=== PATIENT | male | born 1970 | race Caucasian/White ===

== ENCOUNTER 2016-10-16 10:00 | Emergency (ER) | payer MEDICAID ==
[~2016-10-16] VITALS: Ht 172.7 cm; Wt 83.5 kg
[~2016-10-16 10:00] MED LIST: NAPR-260 PO; NO MEDS; POLY10DR19 LEFT EYE
[2016-10-16 10:12] VITALS: Ht 172.7 cm; Wt 83.5 kg
--- NOTE | 2016-10-16 11:11 | ERD ---
ER Documentation Chief Complaint Date/Time DATE: 10/16/16 TIME: 11:09 Chief Complaint Opthomologist referred for blood work. HPI 45-year-old male otherwise healthy comes in with a diagnosis of uveitis of the left eye from his warehouse packaging supervisor and comes to the emergency room for lab work. Patient states that he developed eye redness a week ago, he was seen in the emergency department, patient was seen by myself and went home with antibiotic drops. He states that his symptoms improved slightly and was not able to follow -up with an warehouse packaging supervisor until a week later which was yesterday. His warehouse packaging supervisor is Dr. Fred Castellon, he was told to get blood work to rule out any systemic reasons for uveitis. He has been put on prednisolone eyedrops and has reported significant improvement of his pain and redness. He denies fevers , chills. He denies headaches. ROS All systems reviewed and are negative except as per history of present illness. Medications Home Meds Active Scripts Naproxen* (Naprosyn*) 500 Mg Tablet, 500 MG PO BID Y for PAIN AND/OR INFLAMMATION, #30 TAB Prov:REAL YOUNG PA-C 10/09/16 Polymyxin B Sulfate-TMP* (Polymyxin B-TMP Eye Drops*) 10 Ml Drops, 1 DROP LEFT EYE QID for 7 Days, EA Prov:ERAL YOUNG PA-C 10/09/16 Reported Medications [No Meds] No Conflict Check 08/25/12 Allergies Allergies: Coded Allergies: No Known Allergy (Unverified , 10/16/16) PMhx/Soc Medical and Surgical Hx: pt denies Surgical Hx History of Surgery: No Anesthesia Reaction: No Hx Neurological Disorder: No Hx Respiratory Disorders: No Hx Cardiac Disorders: No Hx Psychiatric Problems: No Hx Miscellaneous Medical Probl: Yes (eye problems) Hx Alcohol Use: No Hx Substance Use: No Hx Tobacco Use: No Physical Exam Vitals Vital Signs Date Time Temp Pulse Resp B/P Pulse Ox O2 Delivery O2 Flow Rate FiO2 10/16/16 10:12 98.3 103 18 165/105 100 Physical Exam General: Well-developed, well-nourished. The patient appears in no acute distress. HEENT: Head is normocephalic, atraumatic. No scleral icterus. Left eye has mild erythema, mild photophobia. No drainage, no periorbital swelling. Neck: Supple. Nontender. Lungs: Clear to auscultation. Normal air movement. Heart: Regular rate and rhythm. S1 and S2 are normal. No murmurs, gallops, or rubs. Abdomen: Nondistended. Extremities: No clubbing or cyanosis. Moving extremities x 4. No weakness. Neurologic: Alert and oriented 3. No focal deficits. Normal speech and gait. Skin: Normal turgor. No rash or lesions. Procedures/MDM MDM: 45-year-old male comes in for lab work, diagnosis was uveitis of the left side. Clinically he does not have evidence of sections process, periorbital cellulitis or orbital cellulitis, foreign bodies. He was asked to follow-up with his warehouse packaging supervisor with results next week. Departure Diagnosis: Primary Impression: Uveitis Additional Impression: Encounter for laboratory test Condition: Good Patient Instructions: Uveitis Additional Instructions: Follow-up with your warehouse packaging supervisor next week. Return sooner for any worsening or new symptoms. REAL YOUNG PA-C Oct 16, 2016 11:11
[2016-10-16 11:33] LABS: BASOPHIL # 0.1 10^3/ul (0.0-0.1); BASOPHILS % 1.4 % (0.0-2.0); EOSINOPHILS % 0.3 % (0.0-7.0); HEMATOCRIT 44.3 % (42.0-52.0); HEMOGLOBIN 14.7 g/dl (14.0-18.0); LYMPHOCYTES # 1.1 10^3/ul (0.8-2.9); LYMPHOCYTES % 21.2 % (15.0-51.0); MEAN CORPUSCULAR HEMOGLOBIN 27.5 pg (29.0-33.0); MEAN CORPUSCULAR HGB CONC 33.2 g/dl (32.0-37.0); MEAN CORPUSCULAR VOLUME 82.8 fl (82.0-101.0); MONOCYTE # 0.3 10^3/ul (0.3-0.9); MONOCYTES % 5.9 % (0.0-11.0); NEUTROPHIL # 3.7 10^3/ul (1.6-7.5); NEUTROPHILS % 71.2 % (39.0-77.0); PLATELET COUNT 304 10^3/UL (140-440); RED BLOOD COUNT 5.35 10^6/ul (4.70-6.10); RED CELL DISTRIBUTION WIDTH 12.9 % (11.5-14.5); UNCORRECTED WBC 5.1 10^3/ul (4.8-10.8); WHITE BLOOD COUNT 5.1 10^3/ul (4.8-10.8)
[2016-10-16 11:34] LABS: CONDITION 1
[2016-10-17 15:11] LABS: ANA SCREEN NEGATIVE (NEGATIVE)
[2016-10-17 16:56] LABS: HLA B-27 POSITIVE (NEGATIVE)
[2016-10-18 21:06] LABS: FLUORESCENT TREPONEMAL AB NON-REACTIVE (NON-REACTIVE)
== END 2016-10-16 11:36 | disposition home or self-care (01) ==
LOC: FTE 10:00
DX: H20.9 Unspecified iridocyclitis (principal)
CPT/HCPCS: 82164; 85025; 85549; 86038; 86480; 86592; 86703; 86812; 87285; Z7502; 99283

== ENCOUNTER 2016-10-19 01:33 | Emergency (ER) | payer MEDICAID ==
[~2016-10-19] VITALS: Ht 177.8 cm; Wt 82.0 kg
[2016-10-19 01:38] VITALS: Ht 177.8 cm; Wt 82.0 kg
[2016-10-19] MEDS ORDERED: HYDROCODONE/APAP (5/325) TAB PO ONE (04:00)
[2016-10-19 04:23] VITALS: BP 155/88; PULSE 70; RESP 20; TEMP 98
--- NOTE | 2016-10-19 04:27 | ERD ---
ER Documentation Chief Complaint Date/Time DATE: 10/19/16 TIME: 04:21 Chief Complaint chronic left eye pain,hx-uveitis HPI This is a 45-year-old male presenting to the emergency room with left eye pain and redness. Patient was seen here a week and a half ago and was given antibiotic eyedrops and was told to follow-up with an cosmetic assembler, patient followed up with the cosmetic assembler last Friday and was diagnosed with uveitis. Patient was given prescription for prednisone drops. Patient was also sent here last Friday to get blood work however he did not get his results. Patient states that he started improving with the prednisone ophthalmologic eyedrops, however it came back today and worsened. Patient states that he has decreased vision loss ROS All systems reviewed and are negative except as per history of present illness. Medications Home Meds Active Scripts Naproxen* (Naprosyn*) 500 Mg Tablet, 500 MG PO BID Y for PAIN AND/OR INFLAMMATION, #30 TAB Prov:REAL YOUNG PA-C 10/09/16 Polymyxin B Sulfate-TMP* (Polymyxin B-TMP Eye Drops*) 10 Ml Drops, 1 DROP LEFT EYE QID for 7 Days, EA Prov:REAL YOUNG PA-C 10/09/16 Reported Medications [No Meds] No Conflict Check 08/25/12 Allergies Allergies: Coded Allergies: No Known Allergy (Unverified , 10/16/16) PMhx/Soc Medical and Surgical Hx: pt denies Surgical Hx History of Surgery: No Anesthesia Reaction: No Hx Neurological Disorder: No Hx Respiratory Disorders: No Hx Cardiac Disorders: No Hx Psychiatric Problems: No Hx Miscellaneous Medical Probl: Yes (uveitis) Hx Alcohol Use: No Hx Substance Use: No Hx Tobacco Use: No Smoking Status: Never smoker Physical Exam Vitals Vital Signs Date Time Temp Pulse Resp B/P Pulse Ox O2 Delivery O2 Flow Rate FiO2 10/19/16 01:38 98.2 66 20 174/90 97 Physical Exam General: WD/WN, in no apparent distress, non-toxic appearing HENT: NC/AT EYES: Left eye is injected, erythema Patient had severe photophobia was difficult to examine NECK: Supple; no LAD PULM: Normal labored breathing CV: RRR Good capillary refill GI: Non-distended, no guarding BACK: No masses EXT: No clubbing, cyanosis, or edema NEURO: Moves on all fours SKIN: intact PSYCH: Normal mood Results 24 hrs Current Medications Medications (Trade) Dose Ordered Sig/Jaun Route PRN Reason Start Time Stop Time Status Last Admin Dose Admin Acetaminophen/ Hydrocodone Bitart (Shafer (5/325)) 2 tab ONCE ONCE PO 10/19/16 04:00 10/19/16 04:01 DC 10/19/16 03:57 Procedures/MDM This is a 45-year-old male presenting to the emergency room with left eye pain due to uveitis that was diagnosed with an cosmetic assembler last Friday. Patient was given prednisone eyedrops and had improvement however it has worsened today. Patient states that he has vision loss and increased pain. Patient was seen here last Friday and had blood work done, there was no evidence of leukocytosis or anemia. Patient was positive for HLA-B27. Patient needs urgent ophthalmologic follow-up. We have called multiple hospitals and [facility] had an cosmetic assembler that would be able to follow-him. I have discussed the transferring process, patient agreed that it is best to go on his own. Patient is stable for discharge to go to [facility] as soon as possible. has also evaluated patient and aided in management. Patient understands and agrees with this plan Departure Diagnosis: Primary Impression: Uveitis Condition: Fair Patient Instructions: What Is Uveitis?, Treating Uveitis, Uveitis Referrals: [facility] YOU HAVE RECEIVED A MEDICAL SCREENING EXAM AND THE RESULTS INDICATE THAT YOU DO NOT HAVE A CONDITION THAT REQUIRES URGENT TREATMENT IN THE EMERGENCY DEPARTMENT. FURTHER EVALUATION AND TREATMENT OF YOUR CONDITION CAN WAIT UNTIL YOU ARE SEEN IN YOUR DOCTORS OFFICE WITHIN THE NEXT 1-2 DAYS. IT IS YOUR RESPONSIBILITY TO MAKE AN APPOINTMENT FOR FOLOW-UP CARE. IF YOU HAVE A PRIMARY DOCTOR --you should call your primary doctor and schedule and appointment IF YOU DO NOT HAVE A PRIMARY DOCTOR YOU CAN CALL OUR PHYSICIAN REFERRAL HOTLINE AT . IF YOU CAN NOT AFFORD TO SEE A PHYSICIAN YOU CAN CHOSE FROM THE FOLLOWING [facility]: [facility] [address] [place] [address] [facility] [address] [place] [address] [facility] [address] [place] [address] Additional Instructions: [facility]: Go to any of the following [facility] SOON POSSIBLE [facility] [address] [place] [address] Please let the next provider know you were postive for HLA-B27 in lab-work Return to this facility if you are not improving as expected. CECI RENDON PA-C Oct 19, 2016 04:27
== END 2016-10-19 04:20 | disposition home or self-care (01) ==
LOC: FTE 01:33
DX: H20.00 Unspecified acute and subacute iridocyclitis (principal)
CPT/HCPCS: Z7502; Z7610; 99283

== ENCOUNTER 2018-01-01 08:03 | Emergency (ER) | END 2018-01-01 09:42 | disposition home or self-care (01) ==